=== PATIENT | male | born 1995 | race Hispanic/Latino ===

== ENCOUNTER 2019-12-25 18:48 | Emergency (ER) | payer SELFPAY ==
[2019-12-25] MEDS ORDERED: Ketorolac Tromethamine 30 MG/ML VIAL ONE (20:31)
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
== END 2019-12-25 20:53 | disposition home or self-care (01) ==
LOC: ERS 18:48
DX: M25.512 Pain in left shoulder (principal); V43.52XA Car driver injured in collision with other type car in traffic accident, initial encounter
CPT/HCPCS: 96372; J1885